=== PATIENT | female | born 2000 | race Caucasian/White ===

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

== ENCOUNTER → 2022-01-04 | Outpatient (CLI) | payer OTHER ==
[2022-01-04 17:13] LABS: FREE T4 1.06 NG/DL (0.78-1.33); THYROID STIMULATING HORMONE 1.49 uIU/ML (0.463-3.98)
== END ==
LOC: M WUC 11:55
PROVIDERS: ATTEND Obstetrics & Gynecology Obstetrics
DX: O99.282 Endocrine, nutritional and metabolic diseases complicating pregnancy, second trimester (principal); E03.9 Hypothyroidism, unspecified

== ENCOUNTER → 2022-01-05 | Outpatient (REF) | payer OTHER | LOC: M LAB REF 18:14 | PROVIDERS: ATTEND Internal Medicine | DX: R30.0 Dysuria (principal) ==

== ENCOUNTER 2024-09-21 10:02 | Day surgery (SDC) | payer OTHER ==
[~2024-09-21] VITALS: Ht 172.7 cm; Wt 94.1 kg
[~2024-09-21 10:02] MED LIST: ACETAMINOPHEN 1000MG/100ML IV BAG As Ordered ONE; GLYCOPYRROLATE INJ 0.2 MG/ML 2 ML VIAL As Ordered ONE; KETOROLAC 60MG 2ML VIAL As Ordered ONE; LIDOCAINE 2% 100MG/5ML SDV (FOR ANES.) As Ordered ONE; METOCLOPRAMIDE INJ 10MG/2ML VIAL As Ordered ONE; MIDAZOLAM INJ 2MG/2ML VIAL As Ordered ONE; ONDANSETRON 4MG 2ML VIAL As Ordered ONE; ROCURONIUM BROMIDE 50MG/5ML VIAL As Ordered ONE; SERT-141 PO; SUGAMMADEX SODIUM 500 MG/5 ML VIAL (BRIDION) As Ordered ONE; TIRZ7.5P3 SQ; fentaNYL 100 MCG/2 ML INJECTION As Ordered ONE; propofoL 200 MG/20 ML VIAL As Ordered ONE
[2024-09-21] MEDS ORDERED: LR 1,000 ML IV SCH ×2 (10:15→13:30)
[2024-09-21 10:54] LABS: HEMATOCRIT 46.3 % (36.0-47.0); HEMOGLOBIN 14.6 g/dl (12.0-15.5); MEAN CORPUSCULAR HEMOGLOBIN 25.1 pg (27.0-33.0); MEAN CORPUSCULAR HGB CONC 31.5 g/dl (32.0-36.5); MEAN CORPUSCULAR VOLUME 79.6 fl (80.0-96.0); PLATELET COUNT, AUTOMATED 255 10^3/uL (150-450); RED BLOOD COUNT 5.82 10^6/uL (4.00-5.40); WHITE BLOOD COUNT 7.2 10^3/uL (4.0-10.0)
[2024-09-21 11:59] LABS: FREE T4 1.1 NG/DL (0.89-1.76); THYROID STIMULATING HORMONE 3.939 uIU/ML (0.55-4.78)
[2024-09-21 12:17] LABS: HCG, SERUM QUANTITATIVE 18200.9 MIU/ML (<4.2)
[2024-09-21] MEDS ORDERED: PHENYLephrine 500MCG 5ML (100MCG/ML) SYRINGE As Ordered ONE (12:18)
[2024-09-21] MEDS ORDERED: ePHEDrine SULFATE 25 MG/5 ML(5MG/ML) SYRINGE As Ordered ONE (12:38)
[2024-09-21] MEDS ORDERED: fentaNYL 100 MCG/2 ML INJECTION IV PRN (13:30)
[2024-09-21] MEDS ORDERED: IBUP-1022 PO (13:42)
[2024-09-21] MEDS ORDERED: OXYC1TAB23 PO (13:44)
[2024-09-21] MEDS: ONDANSETRON 4MG 2ML VIAL IV PRN (14:23)
[2024-09-21] MEDS: oxyCODONE 5MG TAB PO PRN (14:26)
[2024-09-21 14:46] VITALS: BP 98/57; TEMP 98; O2SAT 100
== END 2024-09-21 15:15 | disposition home or self-care (01) ==
LOC: M SDC 10:02
PROVIDERS: ATTEND Specialist
DX: Z30.2 Encounter for sterilization (principal); E03.9 Hypothyroidism, unspecified; Z79.899 Other long term (current) drug therapy
CPT/HCPCS: 36415; 58558; 58661; 81025; 84439; 84443; 84702; 85027; 86850; 86900; 86901; 88302; 88305; J0131; J0665; J1100; J1596; J1885; J2250; J2371; J2405; J2765; J3010